=== PATIENT | female | born 1995 | race Caucasian/White ===

== ENCOUNTER 2017-07-10 14:07 | Emergency (ER) | payer BC ==
[~2017-07-10] VITALS: Ht 160 cm; Wt 83.9 kg
[2017-07-10] MEDS ORDERED: FLAGYL (14:15)
--- NOTE | 2017-07-10 14:53 | NUR ---
PT WAS EVALAUTED BY DR HANEY. PT WAS D/C TO HOME. D/C INSTRUCTIONS GIVEN TO THE PT.
[2017-07-10 14:54] VITALS: BP 128/77
== END 2017-07-10 14:55 | disposition home or self-care (01) ==
LOC: ER 14:10
DX: R14.0 Abdominal distension (gaseous) (principal); Z79.2 Long term (current) use of antibiotics
CPT/HCPCS: A4663